=== PATIENT | female | born 1995 | race Hispanic/Latino ===

== ENCOUNTER 2024-10-20 14:37 | Outpatient (CLI) | payer BC | END 2024-10-20 14:38 | disposition home or self-care (01) | LOC: CSHULT 14:37 | PROVIDERS: ATTEND Nurse Practitioner Family | DX: E03.9 Hypothyroidism, unspecified (principal); E04.2 Nontoxic multinodular goiter; E04.9 Nontoxic goiter, unspecified | CPT/HCPCS: 76536 ==